=== PATIENT | female | born 1960 ===

== ENCOUNTER 2017-08-05 05:45 | Day surgery (SDC) | payer OTHER ==
[~2017-08-05 05:45] MED LIST: CLONAZEPAM0.5 MG PO; COZAAR50 MG PO; XANAX XR0.5 MG PO
[2017-08-05] MEDS ORDERED: KETO10TA2 PO (08:18)
== END 2017-08-05 12:15 | disposition home or self-care (01) ==
LOC: CIR.AMB 05:45
DX: N84.0 Polyp of corpus uteri (principal); N72 Inflammatory disease of cervix uteri